=== PATIENT | female | born 1980 | race Caucasian/White ===

== ENCOUNTER 2021-08-06 20:08 | Emergency (ER) | payer OTHER ==
[~2021-08-06 20:08] MED LIST: AEROCHAMBER1 EA XX; PREDNISONE20 MG PO; VENTOLIN HFA 66.7 GM INH
[2021-08-06 22:46] LABS: RED BLOOD COUNT 5.02 M/UL (4.00-5.10); WHITE BLOOD COUNT 9.3 K/UL (4.5-11.0)
[2021-08-06 23:09] LABS: BUN/CREATININE RATIO 19 (0-10)
[2021-08-07] MEDS ORDERED: PREDNISONE10 MG PO (00:51)
[2021-08-07] MEDS ORDERED: PROVENTIL HFA6.7 GM INH (00:51)
== END 2021-08-07 01:06 | disposition home or self-care (01) ==
LOC: ER1 20:08
PROVIDERS: Family Medicine
DX: J45.901 Unspecified asthma with (acute) exacerbation (principal); F17.290 Nicotine dependence, other tobacco product, uncomplicated; Z88.0 Allergy status to penicillin; Z88.5 Allergy status to narcotic agent
CPT/HCPCS: 71045; 80053; 82550; 82553; 84484; 85025; 85379; 93005; 94664; 96374; 99285; J2930